=== PATIENT | female | born 1945 | race Caucasian/White ===

== ENCOUNTER 2019-07-05 16:24 | Emergency (ER) | payer OTHER ==
[~2019-07-05] VITALS: Ht 167.6 cm; Wt 173.3 kg
[~2019-07-05 16:24] MED LIST: CELEXA 20 MG TA20 M1 PO; EX-LAX5 MG PO; EXCEDRIN ASA F1 EAC1 PO; FLEXERIL PO; GEMFIBROZIL 60600 MG PO; GLUCOPHAGE500 MG PO; GLYBURIDE 5 MG T5 M1 GT; HYDROCHLOROTHIA25 M2 GT; NORCO 10-325 T1 EACH PO; PERCOCET 5-3251 EACH PO; PRINIVIL10 MG PO; ZANTAC 150MG T150 M1 PO
[2019-07-05] MEDS ORDERED: KAYEXALATE15 GM/601 PO (16:47)
[2019-07-05] MEDS ORDERED: BELBUCA150 MCG PO (16:48)
[2019-07-05] MEDS ORDERED: NORVASC 2.5 MG2.5 M1 PO (16:49)
[2019-07-05] MEDS ORDERED: CELEXA 10 MG TA10 M1 PO (16:49)
[2019-07-05] MEDS ORDERED: TURMERIC ROOT5000 GM PO (16:50)
[2019-07-05] MEDS ORDERED: LIPITOR40 MG PO (16:50)
[2019-07-05] MEDS ORDERED: PROBIOTIC1 EAC7 PO (16:51)
[2019-07-05] MEDS ORDERED: COLACE100 MG PO (16:51)
[2019-07-05] MEDS ORDERED: ASA81BEC PO (16:52)
[2019-07-05] MEDS ORDERED: CRANBERRY200 MG PO (16:52)
[2019-07-05] MEDS ORDERED: LEVO-T50 MCG PO (16:53)
[2019-07-05] MEDS ORDERED: VITAMIN D35000 UNIT PO (16:54)
[2019-07-05] MEDS ORDERED: NORCO 10-325 T1 EACH PO (16:55)
[2019-07-05] MEDS ORDERED: TYLENOL PM EX-1 EACH PO (16:55)
[2019-07-05] MEDS ORDERED: FUROSEMIDE 40 M40 MG PO (16:56)
[2019-07-05] MEDS ORDERED: TYLENOL325 MG PO (16:56)
[2019-07-05] MEDS ORDERED: NEURONTIN 300M300 M2 PO (16:57)
[2019-07-05] MEDS ORDERED: ZANTAC 150MG T150 M1 PO (16:57)
[2019-07-05] MEDS ORDERED: TOPROL XL50 MG (16:58)
[2019-07-05] MEDS ORDERED: OMEPRAZOLE 20 M20 M1 PO (16:59)
[2019-07-05] MEDS ORDERED: ALL DAY ALLERGY10 M3 PO (16:59)
[2019-07-05] MEDS ORDERED: EX-LAX15 M1 PO (17:00)
[2019-07-05 17:14] LABS: ABSOLUTE BASOPHILS 0.1 thou/uL (0.0-0.2); ABSOLUTE EOSINOPHILS 0.1 thou/uL (0.0-0.7); ABSOLUTE LYMPHOCYTES 1.4 thou/uL (0.8-5.3); ABSOLUTE MONOCYTES 0.5 thou/uL (0.0-1.2); ABSOLUTE NEUTROPHILS 4.6 thou/uL (1.6-8.1); BASOPHILS 1.3 %; EOSINOPHILS 1.7 %; HEMOGLOBIN 14.1 gm/dL (12.0-15.0); LYMPHOCYTES 21.3 %; MCH 29.8 pg (26.0-34.0); MCHC 32.7 g/dL (28.0-37.0); MCV 90.9 fL (80.0-100.0); MONOCYTES 7.4 %; MPV 7.4 fl. (7.2-11.1); NUCLEATED RBCS 0 /100WBC; PLATELET COUNT* 263 thou/uL (150-400); POLYS 68.3 %; RBC 4.73 mil/uL (4.20-5.00); RDW-CV 14.6 % (10.5-14.5); WBC 6.7 thou/uL (4.0-11.0)
[2019-07-05 17:20] LABS: CALCIUM 9.5 mg/dL (8.5-10.1); POTASSIUM 4.5 mmol/L (3.5-5.1)
[2019-07-05 17:30] LABS: ALBUMIN 3.2 g/dL (3.4-5.0); MAGNESIUM 1.4 mg/dL (1.8-2.4); TOTAL BILIRUBIN 0.5 mg/dL (<0.1-1.0); TOTAL PROTEIN 7.5 g/dL (6.4-8.2)
[2019-07-05] MEDS ORDERED: ONDANSETRON HCL4 M2 PO (18:28)
[2019-07-05 18:59] LABS: URINE BILIRUBIN NEGATIVE (Negative); URINE BLOOD NEGATIVE (Negative); URINE COLOR YELLOW; URINE GLUCOSE-RANDOM NEGATIVE (Negative); URINE KETONES NEGATIVE (Negative); URINE LEUKOCYTES-REFLEX NEGATIVE (Negative); URINE PROTEIN TRACE (Negative); URINE UROBILINOGEN 0.2 E.U./dl (0.2-1.0)
[2019-07-05 19:01] VITALS: BP 133/65
[2019-07-05 19:02] LABS: URINE CLARITY HAZY; URINE NITRITE-REFLEX POSITIVE (Negative)
[2019-07-05 19:09] LABS: SQUAMOUS 4-10 Moderate /LPF (0-3); URINE WBC-REFLEX 0-5 Rare /HPF (0-5)
[2019-07-05 19:10] LABS: BACTERIA-REFLEX >30 Many /HPF (None Seen); CASTS None Seen /LPF (None Seen); CRYSTALS None Seen /LPF (None Seen); URINE RBC None Seen /HPF (0-2)
== END 2019-07-05 19:02 | disposition home or self-care (01) ==
LOC: M.ERS 16:24
PROVIDERS: Nurse Practitioner Family
DX: E83.42 Hypomagnesemia (principal); R53.1 Weakness; I10 Essential (primary) hypertension; E11.40 Type 2 diabetes mellitus with diabetic neuropathy, unspecified; M19.90 Unspecified osteoarthritis, unspecified site; E78.5 Hyperlipidemia, unspecified; K21.9 Gastro-esophageal reflux disease without esophagitis; I48.91 Unspecified atrial fibrillation; E66.01 Morbid (severe) obesity due to excess calories; Z68.44 Body mass index [BMI] 60.0-69.9, adult; Z88.0 Allergy status to penicillin